=== PATIENT | female | born 1995 | race Caucasian/White ===

== ENCOUNTER 2017-11-02 16:29 | Emergency (ER) | payer OTHER ==
[~2017-11-02] VITALS: Ht 175.3 cm; Wt 69.4 kg
[2017-11-02 16:30] VITALS: TEMP 36.6; Ht 175.3 cm; Wt 69.4 kg
[2017-11-02] MEDS ORDERED: EpINEphrine INJ 1MG/ML AMP 1 MG/ML AMP IM STA (16:39)
[2017-11-02] MEDS ORDERED: DiphenhydrAMINE HCL 50 MG/ML VIAL IV STA (16:39)
[2017-11-02] MEDS ORDERED: SODIUM CHLORIDE 0.9% 1000ML 1,000 ML IV STA (16:39)
[2017-11-02] MEDS ORDERED: FAMOTIDINE 20MG/5ML IV PUSH IV STA (16:39)
[2017-11-02] MEDS ORDERED: EpINEphrine INJ 1MG/ML AMP 1 MG/ML AMP ONE (16:40)
--- NOTE | 2017-11-02 16:40 | EMERGENCY ROOM VISIT NOTE ---
History Report prepared by Scribe: Brielle Reeves Under the Supervision of: Dr. Terrell Lawrence M.D. First contact with patient: 16:34 Chief Complaint: ALLERGIC REACTION Stated Complaint: ALLERGIC REACTION Nursing Triage Summary: Pt feels like her throat is closing and is having facial edema. Started at 1300 after she took ibuprofen. Went to [facility] and was given a shot in her buttocks, unsure what it was. Pt has marked lip and facial edema in triage. History of Present Illness The patient is a 21 year old female who presents to the Emergency Room with complaints of an allergic reaction that started at 1300 today. She states she took Ibuprofen for menstrual cramps earlier today and facial edema started shortly afterwards. She admits she has had similar reactions to Ibuprofen in the past, but they were "not as bad". She reports she went to [facility] earlier this afternoon and was given a shot in her buttocks. The patient denies any shortness of breath, nausea or abdominal pain. Source of History: patient Onset: 1300 today Position: other (global) Timing: other (persistent) Modifying Factors (Worsening): other (taking Ibuprofen) Associated Symptoms: No SOB, No nausea, No abdominal pain Review of Systems See HPI for pertinent positives & negatives. A total of 10 systems reviewed and were otherwise negative. Past Medical & Surgical Medical Problems: (1) No significant past medical history Social History Smoking Status: Current Every Day Smoker Alcohol Use: occasionally Drug Use: none Marital Status: single Housing Status: lives with family Occupation Status: student Current/Historical Medications Scheduled Ascorbic Acid (Vitamin C Gummies), 1 TAB PO DAILY Ibuprofen (Advil), 800 MG PO TODAY Prednisone (Prednisone), 50 MG PO DAILY Allergies Coded Allergies: Ibuprofen (Verified Allergy, Severe, HIVES, THROAT SWOLLEN, 11/02/17) Physical Exam Vital Signs Date Time Temp Pulse Resp B/P (MAP) Pulse Ox O2 Delivery O2 Flow Rate FiO2 11/02/17 18:31 87 14 106/57 100 Room Air 11/02/17 18:00 88 16 107/63 98 Room Air 11/02/17 17:30 93 20 126/64 99 Room Air 11/02/17 17:05 103 22 128/79 100 Room Air 11/02/17 16:47 110 11/02/17 16:30 36.6 112 20 147/87 99 Room Air Physical Exam GENERAL: Patient is anxious appearing and crying, in minimal distress. EYES: No scleral icterus, unremarkable pupils. ENT: Mucous membranes moist, no nasal congestion. Swelling of lips and periorbital area. NECK: No masses appreciated, no meningismus, trachea is midline. RESPIRATORY: No dyspnea. Clear to auscultation and equal bilaterally. Faint wheezing, no rhonchi. CARDIOVASCULAR: Regular rate and rhythm. No murmurs, rubs, gallops appreciated. GASTROINTESTINAL: Abdomen soft, nontender, no peritonitis. Bowel sounds positive. No masses appreciated. BACK: No midline tenderness, no CVA tenderness EXTREMITIES: Normal motion all extremities, no cyanosis, no edema. NEUROLOGIC: Alert and oriented, no acute motor or sensory deficits, no focal weakness, cranial nerves grossly intact. SKIN: No rash, no jaundice, no diaphoresis. Medical Decision & Procedures Medications Administered Medications (Trade) Dose Ordered Sig/Reggie Route Start Time Stop Time Status Last Admin Dose Admin Diphenhydramine HCl (Benadryl Inj) 50 mg NOW STAT IV 11/02/17 16:39 11/02/17 16:40 DC 11/02/17 16:49 50 MG Dexamethasone Sodium Phosphate (Dexamethasone Inj Pf) 10 mg NOW ONCE IV 11/02/17 16:45 11/02/17 16:46 DC 11/02/17 16:49 10 MG Sodium Chloride 1,000 ml @ 999 mls/hr Q1H1M STAT IV 11/02/17 16:39 11/02/17 17:39 DC 11/02/17 16:50 999 MLS/HR Famotidine (Pepcid 20mg Iv Push) 20 mg ONE STAT IV 11/02/17 16:39 11/02/17 16:40 DC 11/02/17 16:49 20 MG Epinephrine HCl (EpINEphrine INJ 1MG/ML AMP/VIAL) 0.5 mg NOW STAT IM 11/02/17 16:39 11/02/17 16:40 DC 11/02/17 16:43 0.5 MG ED Course 1635: The patient was evaluated in room A4. A complete history and physical exam was performed. 1639: Epinephrine HCl 0.5 mg IM, Famotidine 20 mg IV, NSS 1000 ml @ 999 mls/hr IV, Benadryl 50 mg IV. 1645: Dexamethasone 10 mg IV. 1700: I reevaluated the patient. She is still a little upset but her symptoms are improving. 1814: I reevaluated the patient. She is asleep. 1899: I reevaluated the patient. She is feeling well and is ready to go home. I discussed her results and discharge instructions and she verbalized complete understanding and agreement. Medical Decision Differential: Allergic Reaction, Urticaria, Anaphylaxis, Zuniga-Tavo Syndrome, Toxic Epidermal Necrolysis, Erythema Multiforme, Cellulitis, amongst other etiologies entertained. 21 yr old female with anaphylaxis to Ibuprofen she took earlier in day with angioedema of face and diffuse hives/urticaria. Given IM epi on arrival with IV placement as well benadryl, decadron, pepcid, NSS bolus. Monitored for ~3 hours and vastly improved with most of facial swelling resolved other than some mild upper lip which is much better itself. She feels much better and wants to go home. Continue PO steroids, given EpiPen to go given no pharmacy open at this time and advised rest and avoiding NSAIDs in future. Reviewed symptoms requiring RTED. Medication Reconcilliation Current Medication List: was personally reviewed by me Blood Pressure Screening Patient's blood pressure: Normal blood pressure Blood pressure disposition: Did not require urgent referral Impression Primary Impression: Anaphylaxis Additional Impressions: Allergic reaction caused by a drug Allergy to nonsteroidal anti-inflammatory drug (NSAID) Scribe Attestation The scribe's documentation has been prepared under my direction and personally reviewed by me in its entirety. I confirm that the note above accurately reflects all work, treatment, procedures, and medical decision making performed by me. Departure Information Dispostion Home / Self-Care Prescriptions Prednisone (PREDNISONE) 50 Mg Tab 50 MG PO DAILY for 4 Days, #4 TAB Prov: Terrell Lawrence M.D. 11/02/17 Patient Instructions ED Anaphylaxis General, My [facility] [employer] Additional Instructions Do not ever take any NSAID medications. This includes Motrin, ibuprofen, Aleve , Advil, Naproxen, Naprosyn, amongst several other medications. If you are unsure ask your Pharmacist. Tylenol (acetaminophen) is NOT an NSAID medication and likely can be used safely without the same reaction you have to ibuprofen. Use Epi-Pen for facial swelling, difficulty breathing, extensive hives, or other evidence of severe allergic reaction. Return to ED immediately if you use this. Problem Qualifiers
[2017-11-02] MEDS ORDERED: DEXAMETHASONE **PF** INJ 10 MG/ML VIAL IV ONE (16:45)
[2017-11-02] MEDS ORDERED: IBUP-1050 PO (17:10)
[2017-11-02] MEDS ORDERED: ASCO125C3 PO (17:10)
[2017-11-02] MEDS ORDERED: PRED50TA PO (18:23)
[2017-11-02] MEDS ORDERED: EPINEPHRINE ADULT AUTO-INJECT 0.3 MG SYR IM STA (19:00)
[2017-11-02 19:32] VITALS: BP 103/60; PULSE 97; O2SAT 99
== END 2017-11-02 19:32 | disposition home or self-care (01) ==
LOC: C.EDB 16:30 → C.EDA 19:32
DX: T88.6XXA Anaphylactic reaction due to adverse effect of correct drug or medicament properly administered, initial encounter (principal); T78.3XXA Angioneurotic edema, initial encounter; X58.XXXA Exposure to other specified factors, initial encounter; F17.200 Nicotine dependence, unspecified, uncomplicated; Z88.6 Allergy status to analgesic agent